=== PATIENT | male | born 1955 | race Caucasian/White ===

== ENCOUNTER 2023-07-31 22:06 | Inpatient (IN) | payer OTHER ==
[~2023-07-31 22:06] MED LIST: Iopamidol 370 76% 100 ML VIAL ONE
[2023-07-31] MEDS ORDERED: Ipratropium/Albuterol 3 ML NEB ONE ×2 (22:13→23:45)
[2023-07-31 22:34] LABS: #Basophils 0.1 10x3/uL (0.0-0.2); #Eosinphils 0.7 10x3/uL (0.0-0.5); #Monocytes 0.6 10x3/uL (0.0-1.1); #Neutrophils 7.7 10x3/uL (1.5-8.4); %Basophils 0.7 % (0.0-2.0); %Eosinophils 6.8 % (0.0-6.0); %Lymphocytes 13.8 % (18.0-47.0); %Monocytes 5.9 % (0.0-10.0); %Neutrophils 72.5 % (40.0-75.0); Hematocrit 43.8 % (38.8-50.0); Hemoglobin 14.6 g/dL (13.5-17.5); Mean Corpuscular HGB CONC 33.3 g/dL (32.0-36.0); Mean Corpuscular Volume 89.9 fl (81.2-95.1); Mean Platelet Volume 8.7 fl (7.4-10.4); Platelet Count 258 10x3/uL (150-450); RBC Distribution Width 14.5 % (11.5-14.5); Red Blood Cell (RBC) Count 4.87 10x6/uL (4.32-5.72); White Blood Cell (WBC) Count 10.6 10x3/uL (3.5-10.5)
[2023-07-31 22:51] LABS: ALT (SGPT) 23 U/L (8-55); AST (SGOT) 27 U/L (5-34); Albumin 4.2 g/dL (3.4-4.8); Alkaline Phosphatase 143 U/L (40-110); Anion Gap 18 mmol/L (10-20); BUN (Urea Nitrogen) 25 mg/dL (8.4-25.7); Bilirubin, Total 0.3 mg/dL (0.2-1.2); Calc. Creatinine Clearance 0 mL/min (70-130); Calcium 8.6 mg/dL (7.8-10.44); Carbon Dioxide 19 mmol/L (23-31); Chloride 109 mmol/L (98-107); Estimated GFR 52; Globulin 2.9 g/dL (2.4-3.5); Glucose 118 mg/dL (80-115); Potassium 4.6 mmol/L (3.5-5.1); Protein, Total 7.1 g/dL (5.8-8.1); Sodium 141 mmol/L (136-145)
[2023-07-31 22:57] LABS: Troponin I 0.025 ng/mL (< 0.028)
[2023-08-01] MEDS ORDERED: cefTRIAXone (ROCEPHIN) 2 GM VIAL ONE (00:02)
[2023-08-01] MEDS ORDERED: Azithromycin 500 MG VIAL ONE (00:02)
[2023-08-01] MEDS ORDERED: Magnesium 2 GM/50 ML BAG (IN WATER) ONE (00:03)
[2023-08-01] MEDS ORDERED: Bupivacaine PF 0.5% 30 ML VIAL ONE (00:42)
[2023-08-01 01:48] LABS: Lactic Acid 0.9 mmol/L (0.5-2.2)
[2023-08-01 02:49] LABS: SARS-CoV-2 NAA Rapid Test Not Detected (NotDetected)
[2023-08-01 03:38] VITALS: BMI 26.6
[2023-08-01] MEDS ORDERED: HYDROmorphone 0.5 MG/0.5 ML SYRINGE SLOW IVP PRN (04:23)
[2023-08-01] MEDS ORDERED: Ondansetron PF 4 MG/2 ML Vial IVP PRN (04:25)
[2023-08-01] MEDS ORDERED: Acetaminophen 325 MG TAB PO PRN (04:25)
[2023-08-01] MEDS ORDERED: Sodium Chloride 0.9% 1,000 ML IV SCH (04:30)
[2023-08-01] MEDS: Ipratropium/Albuterol 3 ML NEB NEB PRN ×2 (11:40→19:40)
[2023-08-02 05:08] LABS: #Eosinphils 0.1 10x3/uL (0.0-0.5); #Monocytes 0.7 10x3/uL (0.0-1.1); #Neutrophils 7.5 10x3/uL (1.5-8.4); %Basophils 0.2 % (0.0-2.0); %Eosinophils 1.4 % (0.0-6.0); %Lymphocytes 15.6 % (18.0-47.0); %Monocytes 7.3 % (0.0-10.0); %Neutrophils 75.2 % (40.0-75.0); Hematocrit 39.4 % (38.8-50.0); Hemoglobin 13.1 g/dL (13.5-17.5); Mean Corpuscular HGB CONC 33.2 g/dL (32.0-36.0); Mean Corpuscular Hemoglobin 30.1 pg (27.0-33.0); Mean Corpuscular Volume 90.6 fl (81.2-95.1); Mean Platelet Volume 8.9 fl (7.4-10.4); Platelet Count 220 10x3/uL (150-450); RBC Distribution Width 14.7 % (11.5-14.5); Red Blood Cell (RBC) Count 4.35 10x6/uL (4.32-5.72)
[2023-08-02 05:17] LABS: ALT (SGPT) 19 U/L (8-55); AST (SGOT) 21 U/L (5-34); Albumin 3.6 g/dL (3.4-4.8); Alkaline Phosphatase 112 U/L (40-110); Anion Gap 11 mmol/L (10-20); BUN (Urea Nitrogen) 24 mg/dL (8.4-25.7); Bilirubin, Total 0.5 mg/dL (0.2-1.2); Calc. Creatinine Clearance 61 mL/min (70-130); Calcium 8.8 mg/dL (7.8-10.44); Carbon Dioxide 20 mmol/L (23-31); Chloride 111 mmol/L (98-107); Estimated GFR 65; Globulin 2.5 g/dL (2.4-3.5); Glucose 98 mg/dL (80-115); Potassium 4.2 mmol/L (3.5-5.1); Protein, Total 6.1 g/dL (5.8-8.1); Sodium 138 mmol/L (136-145)
[2023-08-02] MEDS ORDERED: Levothyroxine Sodium 25 MCG TAB PO SCH (06:00)
[2023-08-02] MEDS ORDERED: Lisinopril 20 MG TAB PO SCH (09:00)
[2023-08-02] MEDS: Ipratropium/Albuterol 3 ML NEB NEB PRN (13:40)
[2023-08-02 17:00] VITALS: BP 131/65; TEMP 98.6
== END 2023-08-02 19:24 | disposition home or self-care (01) | DRG 201 ==
LOC: CSHERS 22:06 → CSHTELE 08-01 01:31
PROVIDERS: ADMIT Surgery; ATTEND Surgery
PROC: 0W9930Z Drainage of Right Pleural Cavity with Drainage Device, Percutaneous Approach (ICD-10-PCS; principal; 2023-08-01)
DX: J93.9 Pneumothorax, unspecified (principal); J44.9 Chronic obstructive pulmonary disease, unspecified; F17.210 Nicotine dependence, cigarettes, uncomplicated; I10 Essential (primary) hypertension; Z92.3 Personal history of irradiation; Z92.21 Personal history of antineoplastic chemotherapy; Z85.118 Personal history of other malignant neoplasm of bronchus and lung; Z11.52 Encounter for screening for COVID-19
CPT/HCPCS: 71045; 71275; 80053; 83605; 83880; 84484; 85025; 93005; 94640; J0456; J0696; J3475; J7050; J7620; Q9967; S0020